=== PATIENT | male | born 2000 | race Two or more races ===

== ENCOUNTER 2020-09-04 14:28 | Emergency (ER) | payer OTHER, SELFPAY ==
[~2020-09-04] VITALS: Ht 182.9 cm; Wt 100.0 kg
[2020-09-04] MEDS ORDERED: MAGIC MOUTHWASH SUSPENSION BTL SS STA (17:02)
[2020-09-04] MEDS ORDERED: PSEUDOEPHEDRINE 30 MG TAB PO STA (17:02)
[2020-09-04] MEDS ORDERED: BENZONATATE 100 MG CAP PO ONE (17:05)
--- NOTE | 2020-09-04 17:40 | REP ---
INDICATION: cough, sore throat, nasal congestion COMPARISON: None. TECHNIQUE: Portable AP view of the chest FINDINGS: The mediastinum and cardiac silhouette are within normal limits for portable technique. The lung rosa are clear without acute consolidation, effusion, or pneumothorax. Skeletal structures are intact. IMPRESSION: No acute cardiopulmonary process appreciated. <Electronically signed by Irwin Basurto > 09/04/20 [id number]
[2020-09-04] MEDS: ALBUTEROL 90 MCG/ACT 8GM HFA INHALER INH SCH ×3 (17:45→18:37)
[2020-09-04] MEDS ORDERED: TESS100C PO (19:18)
[2020-09-04] MEDS ORDERED: CETI10CA13 PO (19:18)
[2020-09-04] MEDS ORDERED: PROAAER10 INH (19:18)
[2020-09-04] MEDS ORDERED: PSEU120T19 PO (19:18)
[2020-09-04 19:25] VITALS: BP 140/71
== END 2020-09-04 19:26 | disposition home or self-care (01) ==
LOC: M ED 14:28
DX: R05 Cough (principal); R09.81 Nasal congestion; R07.0 Pain in throat; Z86.16 Personal history of COVID-19; Z79.51 Long term (current) use of inhaled steroids; Z79.899 Other long term (current) drug therapy

== ENCOUNTER 2020-09-16 16:40 | Emergency (ER) | payer OTHER ==
[~2020-09-16] VITALS: Ht 182.9 cm; Wt 102.4 kg
[~2020-09-16 16:40] MED LIST: CETI10CA13 PO; PROAAER10 INH; PSEU120T19 PO; TESS100C PO
[2020-09-16 20:59] LABS: BASO % 0.5 % (0.0-1.0); EOS # 0.2 10^3/uL (0.0-0.5); EOS % 4.1 % (0.0-3.0); HEMATOCRIT 48.2 % (42.0-52.0); HEMOGLOBIN 16.1 g/dl (13.5-17.5); LYMPH # 1.4 10^3/uL (1.5-5.0); LYMPH % 23.1 % (24.0-44.0); MEAN CORPUSCULAR HEMOGLOBIN 29.3 pg (27.0-33.0); MEAN CORPUSCULAR HGB CONC 33.4 g/dl (32.0-36.5); MEAN CORPUSCULAR VOLUME 87.8 fl (80.0-96.0); MONO # 0.4 10^3/uL (0.0-0.8); MONO % 7.3 % (2.0-8.0); NEUTROPHILS # 3.8 10^3/uL (1.5-8.5); NEUTROPHILS % 64.7 % (36.0-66.0); PLATELET COUNT, AUTOMATED 248 10^3/uL (150-450); RED BLOOD COUNT 5.49 10^6/uL (4.30-6.10); WHITE BLOOD COUNT 5.9 10^3/uL (4.0-10.0)
--- NOTE | 2020-09-16 21:37 | REPVR ---
PROCEDURE INFORMATION: Exam: XR Chest Exam date and time: 09/16/2020 8:50 PM Age: 20 years old Clinical indication: Other: Chest pain TECHNIQUE: Imaging protocol: XR of the chest. Views: 2 views. COMPARISON: CR PORTABLE CHEST X-RAY 09/04/2020 5:08 PM FINDINGS: Lungs: Unremarkable. No consolidation. Pleural spaces: Unremarkable. No pleural effusion. No pneumothorax. Heart/Mediastinum: Unremarkable. No cardiomegaly. Bones/joints: Unremarkable. IMPRESSION: No acute findings. Electronically signed by: Yash Gaona On 09/16/2020 21:37:51 PM
[2020-09-16 21:41] LABS: BLOOD UREA NITROGEN 8 MG/DL (7-18); CALCIUM LEVEL 8.9 MG/DL (8.5-10.1); CARBON DIOXIDE LEVEL 29 MEQ/L (21-32); CHLORIDE LEVEL 108 MEQ/L (98-107); CPK CREATINE PHOSPHOKINASE 132 U/L (39-308); CREATININE FOR GFR 0.95 MG/DL (0.70-1.30); GLOMERULAR FILTRATION RATE > 60.0 (>60); GLUCOSE, FASTING 79 MG/DL (70-100); MB/CK RELATIVE INDEX 0.76 (< OR =4); NT-PRO BNP 21 PG/ML (<125); POTASSIUM SERUM 4.2 MEQ/L (3.5-5.1); SODIUM LEVEL 141 MEQ/L (136-145); TROPONIN I < 0.02 NG/ML (< 0.10)
[2020-09-16 22:21] VITALS: BP 132/78
--- NOTE | 2020-09-18 08:45 | ECGEPIP ---
[facility] - ED Test Date: 2020-09-16 Pat Name: REBEL SAWANT Department: Room: - Gender: Male [employer] Worker: ARMIN : 2000 Requested By: ANGY Humphrey PA-C Order Number: [id number] Reading MD: Dayana Alejandra Measurements Intervals [place] Rate: 53 P: 50 GA: 156 QRS: 44 QRSD: 90 T: 28 QT: 396 QTc: 371 Interpretive Statements Sinus bradycardia ST elevation, consider early repolarization, pericarditis, or injury ?brugada - clinical correlation No prior clinical correlation No prior Electronically Signed on 09-18-2020 8:45:17 EDT by Dayana Alejandra
== END 2020-09-16 22:22 | disposition home or self-care (01) ==
LOC: M ED 16:40
DX: M94.0 Chondrocostal junction syndrome [Tietze] (principal); R94.31 Abnormal electrocardiogram [ECG] [EKG]; Z79.899 Other long term (current) drug therapy; Z91.048 Other nonmedicinal substance allergy status

== ENCOUNTER 2022-10-02 13:58 | Emergency (ER) | payer OTHER ==
[~2022-10-02] VITALS: Ht 180.3 cm; Wt 103.2 kg
[2022-10-02 13:59] VITALS: BP 136/71; TEMP 98.1; O2SAT 96
[2022-10-02] MEDS ORDERED: LIDOCAINE 2% MDV 20ML VIAL SC ONE (16:00)
== END 2022-10-02 16:58 | disposition home or self-care (01) ==
LOC: M ED 13:58
DX: S91.112A Laceration without foreign body of left great toe without damage to nail, initial encounter (principal); W20.8XXA Other cause of strike by thrown, projected or falling object, initial encounter; F10.10 Alcohol abuse, uncomplicated; Y92.39 Other specified sports and athletic area as the place of occurrence of the external cause; Z79.52 Long term (current) use of systemic steroids; Z79.899 Other long term (current) drug therapy